=== PATIENT | male | born 1975 | race Caucasian/White ===

== ENCOUNTER → 2023-12-31 | Outpatient (CLI) | payer BC ==
--- NOTE | 2024-01-01 08:45 | MR ---
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 IV Contrast: cc . (None if empty) FINDINGS: Alignment: The lumbar vertebral bodies have preserved heights and alignment. Cord: The conus medullaris and the distal spinal cord appear unremarkable with regards to their signa l intensity and morphology. Bones/Discs: Multilevel disc degeneration changes with osteophyte formation, disc space narrowing, Sc hmorl's nodes, and facet joint arthropathy. Intervertebral disc signal is maintained. No abnormal in version recovery signal to suggest bony edema. T12-L1: No evidence of significant spinal canal stenosis or neural foraminal stenosis. L1-L2: No evidence of significant spinal canal stenosis or neural foraminal stenosis. L2-L3: Disc bulge and facet joint arthropathy result in mild spinal canal and mild bilateral neural f oraminal stenosis. L3-L4: Central disc bulge with left foraminal/central disc extrusion with sequestration of disc mater ial measuring up to 14 x 8 mm series 401 image 7 and series 701 image 11 the neural foramen are paten t. Mild effacement of the anterior thecal sac with extension towards the and possibly abutting the de forming L4-L5 left nerve.. L4-L5: Central protrusion with left central disc extrusion and migration of disc material 7 mm below the joint space series 701 image 6 and series 401 image 8. Disc material closely approximates the for isaias L5-S1 nerve. The neural foramen are patent. No significant spinal canal stenosis. L5-S1: The disc has a rounded posterior morphology without significant spinal canal stenosis. Facet j oint arthropathy with mild to moderate bilateral neural foraminal stenosis. No significant spinal canal or neural foraminal stenosis in the remainder of the visualized levels. Other findings: None. IMPRESSION: 1. L3-L4 left foraminal/central disc extrusion with sequestration of disc material. This material cl osely approximates the forming L4-L5 nerve. 2. L4-L5 left central disc extrusion which closely approximates the forming L5-S1 nerve. 3. Moderate disc degeneration with associated osteoarthritic changes.
== END | disposition home or self-care (01) ==
LOC: RADMRIMAIN 19:02
PROVIDERS: ATTEND Orthopaedic Surgery
DX: M47.816 Spondylosis without myelopathy or radiculopathy, lumbar region (principal); M16.12 Unilateral primary osteoarthritis, left hip; M51.26 Other intervertebral disc displacement, lumbar region; M51.36 Other intervertebral disc degeneration, lumbar region
CPT/HCPCS: 72148

== ENCOUNTER → 2024-05-21 | Outpatient (CLI) | payer BC ==
[2024-05-21 18:29] LABS: BUN/Creat Ratio 18.67 Ratio (12.00-20.00); Blood Urea Nitrogen 16.8 mg/dL (9.0-27.0); Calcium 9.4 mg/dL (8.7-10.3); Carbon Dioxide 28.7 mmol/L (21.6-31.8); Chloride 103 mmol/L (96-109); Glucose 105 mg/dL (70-110); Potassium 4.5 mmol/L (3.5-5.5); Sodium 140 mmol/L (135-145)
== END | disposition home or self-care (01) ==
LOC: LABPAT 15:34
PROVIDERS: ATTEND Orthopaedic Surgery
DX: M16.12 Unilateral primary osteoarthritis, left hip (principal)
CPT/HCPCS: 80048; 86850; 86900; 86901; 87070; 93005

== ENCOUNTER 2024-06-01 05:43 | Day surgery (SDC) | payer BC ==
--- NOTE | 2024-05-31 08:22 | P.HPOR ---
History of Present Illness H&P Date: 05/31/24 Chief Complaint: Left hip pain The patient is a 49-year-old L that presents with progressive left hip pain for the past 2 years. He notes he previously hurt himself playing hockey. He notes groin and thigh pain with any weightbearing activities. He has a difficult time getting out of a chair. He notes stiffness. He's tried medications along with chiropractic treatment without much relief.male tHe notes daily pain that limits his normal function and activities.hat presents with progressive left hip pain for the past 2 years. He notes he previously hurt himself playing hockey. He notes groin and thigh pain with any weightbearing activities. He has a difficult time getting out of a chair. He notes stiffness. He has tried medications along with chiropractic treatment without much relief. He notes daily pain that limits his normal function and activities. Review of Systems Per HPI Past Medical History Past Medical History: Osteoarthritis (OA) Additional Past Medical History / Comment(s): current being tx. for sinus infection-surgeon office aware per pt. History of Any Multi-Drug Resistant Organisms: None Reported Past Surgical History: Hernia Repair Additional Past Surgical History / Comment(s): sinus surg., deviated septum repair Past Anesthesia/Blood Transfusion Reactions: No Reported Reaction Smoking Status: Never smoker - Past Family History Mother Family Medical History: No Reported History Medications and Allergies Home Medications Medication Instructions Recorded Confirmed Type Azithromycin [Zithromax Z Pack] 1 tab PO DIRECTED 05/26/24 05/26/24 History Ibuprofen [Advil] 200 - 400 mg PO Q6HR PRN 05/26/24 05/26/24 History Multivitamins, Thera [Multivitamin 1 tab PO DAILY 05/26/24 05/26/24 History (formulary)] [place]-3/Dha/Epa/Fish Oil [Fish Oil 1 each PO DAILY 05/26/24 05/26/24 History 1,000 mg Softgel] Allergies Allergy/AdvReac Type Severity Reaction Status Date / Time Penicillins Allergy Rash/Hives Verified 05/26/24 10:32 Physical Examination - Hip left Gait: antalgic Tenderness with palpation: anterior Pain with motion: internal rotation and hip flexion ROM: flexion: 70 degrees ROM: internal rotation: 0 degrees (With pain) ROM: external rotation: 50 degrees Crepitus with motion: Yes Strength: extension: 5/5 Strength: flexion: 5/5 Strength: abduction: 5/5 Tests: impingement tests: positive Results Ngozi riley is a well-developed well-nourished male approximately 6 foot 3, 205 pounds of endomorphic habitus. HEENT exam is nonfocal, neck is supple. He has painful passive motion of the left hip. Straight leg raise is negative. His distal neurovascular exam appears intact in left lower extremity. He has shortening clinically of the left lower extremity. He has shortening clinically of the left lower extremity compared the right. His distal neurovascular exam appears intact in the left lower extremity. - Diagnostic results Hip x-ray: image reviewed (X-rays of the left hip obtained in the office show severe osteoarthrosis with [id number] changes and subchondral sclerosis.) Assessment and Plan Assessment: Left hip severe osteoarthrosis Plan: I talked to the patient at length regarding his condition along with treatment options. At this point is quite symptomatic and limited because of pain related to his left hip osteoarthrosis despite conservative measures. After a thorough discussion he opts to proceed with surgery. We will plan to proceed with left total hip arthroplasty utilizing an anterior approach. Risks and benefits were discussed at length in layman's terms. We will institute DVT prophylaxis postoperatively.
[~2024-06-01 05:43] MED LIST: TRANEXAMIC 1,000 MG/100ML-NACL 1,000 MG in SALINE 1 100ML.BAG IVPB PRN
[2024-06-01] MEDS: ACETAMINOPHEN TAB 500 MG TAB PO PRN (06:40)
[2024-06-01] MEDS: MELOXICAM 7.5 MG TAB PO PRN (06:40)
[2024-06-01] MEDS: ONDANSETRON 4 MG/2 ML VIAL IVP ONE (06:41)
[2024-06-01] MEDS: DEXAMETHASONE SOD PHOSPHATE 4 MG/ML 1 ML VIAL IV ONE (06:42)
[2024-06-01] MEDS: SCOPOLAMINE 1 MG/72 HR PATCH TRANSDERM ONE (06:43)
[2024-06-01 06:45] LABS: HCT 44.1 % (39.0-53.0); HGB 14.8 gm/dL (13.0-17.5); MCH 31.9 pg (25.0-35.0); MCHC 33.6 g/dL (31.0-37.0); Mean Platelet Volume 7.1; Platelet Count 253 k/uL (150-450); RBC 4.64 m/uL (4.30-5.90); RDW 12.6 % (11.5-15.5); WBC 6.6 k/uL (3.8-10.6)
[2024-06-01] MEDS: LACTATED RINGERS 1,000 ML IV SCH (06:45)
[2024-06-01] MEDS: IV FLUID CONTINUATION 1,000 ML IV ONE (06:46)
[2024-06-01] MEDS: MIDAZOLAM 2 MG/2 ML VIAL IVP ONE (06:59)
[2024-06-01] MEDS ORDERED: MIDAZOLAM 2 MG/2 ML VIAL IV PRN (07:00)
[2024-06-01] MEDS ORDERED: HYDROmorphone 0.5 MG/0.5 ML SYRINGE IVP PRN ×2 (07:00→10:23)
[2024-06-01 07:15] LABS: INR 0.9 (<1.2); Prothrombin Time 10.4 sec (10.0-12.5)
--- NOTE | 2024-06-01 07:19 | P.ANPRN ---
Procedure Note - Anesthesia - Nerve Block Performed Left Ok Single Time Out Performed: Yes Date of Procedure: 06/01/24 Procedure Start Time: 06:59 Procedure Stop Time: 07:04 Location of Patient: PreOp Indication: Acute Post-Operative Pain, Requested by Surgeon Sedation Type: Sedate with meaningful contact maintained Preparation: Sterile Prep Position: Supine Needle Types: Pajunk Needle Gauge: 21 Ultrasound used to visualize needle placement: Yes Ultrasound used to observe medication spread: Yes Injectate: 0.5% Ropivacaine (see comment for volume) (30 ml + 4 mg Dexamethas one) Blood Aspirated: No Pain Paresthesia on Injection Noted: No Resistance on Injection: Normal Image Stored and Saved: Yes Events: Uneventful and Well Tolerated
[2024-06-01] MEDS ORDERED: ROPIVACAINE 5 MG/ML 30 ML VIAL ONE (07:23)
[2024-06-01] MEDS ORDERED: TRANEXAMIC 1,000 MG/100ML-NACL PREMIX BAG ONE (07:23)
[2024-06-01] MEDS ORDERED: DEXAMETHASONE SOD PHOSPHATE 4 MG/ML 1 ML VIAL ONE (07:23)
[2024-06-01] MEDS ORDERED: MIDAZOLAM 2 MG/2 ML VIAL ONE (07:23)
[2024-06-01] MEDS ORDERED: LIDOCAINE 1% INJ 10MG/ML (20 ML MDV) ONE (07:23)
[2024-06-01] MEDS ORDERED: PROPOFOL 10 MG/ML 20 ML VIAL IV ONE (07:23)
[2024-06-01] MEDS: LACTATED RINGERS 1,000 ML IV ONE (10:10)
[2024-06-01] MEDS ORDERED: HYDROmorphone 1 MG/ML 1 ML SYRINGE IVP PRN (10:23)
[2024-06-01] MEDS ORDERED: MAGNESIUM HYDROXIDE 2,400 MG/30 ML CUP PO PRN (10:23)
[2024-06-01] MEDS ORDERED: NALOXONE 0.4 MG/ML 1 ML VIAL IV PRN (10:23)
[2024-06-01] MEDS ORDERED: hydrOXYzine pamoate 25 MG CAP PO PRN (10:23)
[2024-06-01] MEDS ORDERED: ONDANSETRON 4 MG/2 ML VIAL IVP PRN (10:23)
[2024-06-01] MEDS ORDERED: HYDROcodone/APAP 5-325MG 1 EACH TAB PO PRN (10:23)
--- NOTE | 2024-06-01 10:30 | XR ---
Fluoroscopy INDICATION: Pain FINDINGS: Fluoroscopy time: 1 minute 6.9 seconds. Total dose area product (DAP) in uGy*m?, mGy*cm? (or similar): 3.3489 Images obtained: 2. IMPRESSION: 1. Documentation of fluoroscopy. [facility], , 06/01/2024 10:28 AM
--- NOTE | 2024-06-01 10:40 | P.OP ---
Date of Procedure: 06/01/24 Preoperative Diagnosis: Severe left hip osteoarthrosis Postoperative Diagnosis: Same Procedure(s) Performed: Left total hip arthroplastypress-fitanterior approach Implants: DePuy Corail size 12-125 degreehigh offset collared press-fit femoral stem, 36+5 cobalt chrome femoral head, 60 mm [place] acetabular shell with neutral polyethylene liner. Anesthesia: spinal Surgeon: Tae Aparicio Commercial Loan Coordinator #1: Jose Vicente Estimated Blood Loss (ml): 200 Pathology: none sent Condition: stable Disposition: PACU Indications for Procedure: The patient is a 49-year-old male who presents with progressive left hip pain secondary to osteoarthrosis despite conservative measures. A discussion of the risks and benefits of operative intervention versus continued conservative measures was made with the patient. He opted proceed with surgery. Operative risks include infection, neurovascular injury, development of blood clots, fracture, leg length discrepancy, possible component loosening/failure, possible instability, possible need for subsequent procedures was discussed. Informed consent was obtained. Operative Findings: As below Description of Procedure: The patient was brought to the operating room, and after induction of spinal anesthesia was placed supine on the Marissa table. Positioning was checked with fluoroscopy. The left hip was then prepped and draped in a normal fashion. A 12 cm incision was then made starting 2 fingerbreadths distal and 3 finger breaths posterior to the ASIS in line with the proximal femur. The skin was incised sharply. Subcutaneous tissues were divided sharply. Electrocautery was used for hemostasis. The fascia was split in line with skin incision. The interval between the sartorius and tensor fascia margie was then bluntly develo ped. The posterior fascia was opened with electrocautery. The lateral circumflex vessels were identified and cauterized prior to sectioning. A retractor was placed along the superior femoral neck as well as the anterior acetabular rim. A wide capsulotomy was performed. The neck cut was then made at a 45 angle to the shaft approximately 1 1/2 cm above the level of the lesser trochanter. The head was extracted. Attention was then paid towards preparing the acetabulum. Anterior and posterior retractors were placed. The remaining capsular labral tissue sharply debrided clearly defining the acetabular margins. I began reaming with a 53 mm reamer taking care to initially medialize then reaming at 45 of abduction and 20 of anteversion. Sequential reaming is performed up to 59 mm. A trial 60 mm acetabular shell was inserted in the same orientation and was fully seated. There was good rim fit and stability. Positioning was checked with fluoroscopy. The final 60 mm acetabular shell was inserted again at 45 of abduction and 20 of anteversion. This was fully seated. There was good rim fit and stability. Again fluoroscopy was used to check the adequacy of placement. A neutral polyethylene liner was gently impacted. Care was taken to avoid any soft tissue interposition. Pulsatile lavage was utilized. Attention was then paid towards preparing the proximal femur. The central region was cleared of soft tissue. A canal finder was used to find the femoral canal. Sequential broaching was performed up to size 12 taking care to lateralize proximally. A calcar mill was used to fashion the medial calcar. There was good rotational stability. A 125 degree high offset neck along with a 36 mm +5 head was placed. The hip was gently reduced. Fluoroscopy was used to check the adequacy of positioning along with leg lengths. I felt both were good. The hip was gently dislocated. The trial components were removed. The final size 12-125 degreehigh offset co llared standard press-fit femoral stem was inserted parallel to the posterior cortex. This was fully seated and there was good rotational stability. A 36 mm +5 cobalt chrome femoral head was placed. This was gently impacted. The hip was then gently reduced. Final fluoroscopic view showed adequate placement implant along with protestant of leg length. Stability was checked with 80 of external rotation and 60 of extension of the right hip. The wound was irrigated with sterile lavage. The fascia was closed with running 0 Vicryl suture. There was minimal drainage therefore a deep drain was not placed. The second dose of IV TXA was given. The subcutaneous tissues were reapproximated interrupted 2-0 Vicryl sutures. The skin was reapproximated with 3-0 subcuticular strata fix suture. Skin tape and adhesive was applied. A sterile dressing was applied. The patient was then awoken from sedation and transferred to recovery room in good condition. Blood loss was estimated at 200 mL. No complications were incurred. Sponge and needle counts were correct at the end of the case. Jose MICHAUD assisted during the major components is case to include exposure, bone resection, implantation, and closure.
--- NOTE | 2024-06-01 10:50 | FL ---
EXAMINATION TYPE: FL guidance operating room, XR Hip Limited LT DATE OF EXAM: 06/01/2024 10:21 AM COMPARISON: Pre Operative Images if available both CT/MRI or plain film CLINICAL INDICATION: Male, 49 years old with history of LEFT ANTERIOR HIP; TECHNIQUE: FL guidance operating room, XR Hip Limited LT, multiple fluoroscopic images provided for p rocedure. Total fluoroscopy time: 1.06 minutes Total submitted images to PACS: 1 DAP: 3.3489 mGym2 Gycm2 uGym2 cGycm2 or equivalent. FINDINGS: Fluoroscopic images during internal fixation/arthroplasty demonstrate hardware in appropriate positio n. Hardware appears intact. No immediate complication identified. IMPRESSION: 1. No evidence for intraoperative complication. 2. Please see the operative/procedural note for further details. [facility], , 06/01/2024 10:32 AM
--- NOTE | 2024-06-01 16:35 | P.CONS ---
History of Present Illness - Reason for Consult Consult date: 06/01/24 - History of Present Illness 49 year old M with no significant PMH presents to the [facility] for elective surgery. He underwent Left total hip arthroplastypress-fitanterior approach with Dr. Aparicio. [facility] [place] Physicians consulted for medical management of this patient. 06/01 Patient was seen and examined. Reports numbness in the left knee to the left hip. No other complaints. CBC and Coag panel unremarkable. General: non toxic, no distress, appears at stated age Derm: warm, dry Head: atraumatic, normocephalic, symmetric Eyes: EOMI, no lid lag, anicteric sclera Mouth: no lip lesion, mucus membranes moist Cardiovascular: S1S2 denis, no murmur Lungs: CTA bilateral, no rhonchi, no rales , no accessory muscle use Ext: no gross muscle atrophy, no edema, no contractures Neuro: no focal neuro deficits Psych: Alert, oriented, appropriate affect Based on my assessment of this patient, this patient meets a high complexity level of care. Sinus bradycardia: Asymptomatic. Discontinue Scopolamine patch. Obtain EKG. Telemetry monitoring. Check Mag and K. Left hip osteoarthritis status post left total hip arthroplasty POD 0: Management per Orthopedic surgery. CODE STATUS: FULL CODE DVT Prophylaxis: Xarelto GI Prophylaxis: Designated medical POA if patient is not able to make medical decisions for themselves: I have reviewed the following universal branch consultant notes: Ortho note. I have reviewed the results of the following tests: CBC I have ordered the following tests: CBC, BMP, Mag. I have discussed the care of this patient with the following independent historian: FRACISCO. I have independently interpreted the following test below: I have discussed the management of this patient with the following physician: Past Medical History Past Medical History: Osteoarthritis (OA) Additional Past Medical History / Comment(s): current being tx. for sinus infection-surgeon office aware per pt. History of Any Multi-Drug Resistant Organisms: None Reported Past Surgical History: Hernia Repair Additional Past Surgical History / Comment(s): sinus surg., deviated septum repair Past Anesthesia/Blood Transfusion Reactions: No Reported Reaction Past Psychological History: No Psychological Hx Reported Smoking Status: Never smoker Past Alcohol Use History: Occasional Past Drug Use History: None Reported - Past Family History Mother Family Medical History: No Reported History Medications and Allergies Home Medications Medication Instructions Recorded Confirmed Type Azithromycin [Zithromax Z Pack] 1 tab PO DIRECTED 05/26/24 05/26/24 History Ibuprofen [Advil] 200 - 400 mg PO Q6HR PRN 05/26/24 05/26/24 History Multivitamins, Thera [Multivitamin 1 tab PO DAILY 05/26/24 05/26/24 History (formulary)] [place]-3/Dha/Epa/Fish Oil [Fish Oil 1 each PO DAILY 05/26/24 05/26/24 History 1,000 mg Softgel] Allergies Allergy/AdvReac Type Severity Reaction Status Date / Time Penicillins Allergy Rash/Hives Verified 06/01/24 06:12 Physical Exam Vitals: Vital Signs Temp Pulse Resp BP BP Pulse Ox 06/01/24 14:04 97.4 F L 56 L 18 123/66 99 06/01/24 12:57 51 L 14 111/63 100 06/01/24 12:28 75 14 112/64 99 06/01/24 11:58 48 L 14 121/69 99 06/01/24 11:28 42 L 14 100 06/01/24 11:13 52 L 14 123/67 100 06/01/24 10:58 56 L 14 121/75 100 06/01/24 10:43 54 L 14 119/73 100 06/01/24 10:28 96.7 F L 62 14 122/75 98 06/01/24 07:14 61 16 141/84 100 06/01/24 06:20 96.9 F L 61 16 143/77 100 Intake and Output 06/01/24 06/01/24 06/01/24 06:59 14:59 22:59 Intake Total 400 850 300 Output Total 200 Balance 400 650 300 Intake: IV 400 850 Oral 300 Output: Estimated Blood Loss 200 Other: # Voids 1 Weight 93 kg 93 kg Results CBC & Chem 7: 06/01/24 06:20
[2024-06-01 16:44] LABS: Glucose,Whole Blood 144 mg/dL (70-110)
[2024-06-01] MEDS: HYDROcodone/APAP 7.5-325MG 1 EACH TAB PO PRN (18:47)
[2024-06-01] MEDS: SENNOSIDES-DOCUSATE SODIUM 1 EACH TAB PO SCH (21:38)
[2024-06-02 05:49] LABS: African American GFR (CKD) >90 (>60 ml/min/1.73 sqM); Anion Gap 3 mmol/L; Blood Urea Nitrogen 18 mg/dL (9-20); Calcium 8.2 mg/dL (8.4-10.2); Carbon Dioxide 28 mmol/L (22-30); Chloride 105 mmol/L (98-107); Glucose 112 mg/dL (74-99); Magnesium 2.1 mg/dL (1.6-2.3); Non-African American GFR(CKD) >90 (>60 ml/min/1.73 sqM); Potassium 4.3 mmol/L (3.5-5.1); Sodium 136 mmol/L (137-145)
[2024-06-02 08:08] VITALS: BP 114/62; PULSE 83; RESP 18; TEMP 98.4
[2024-06-02] MEDS: RIVAROXABAN 10 MG TAB PO SCH (08:15)
[2024-06-02 09:03] LABS: Basophils # (A) 0.02 X 10*3/uL (0.00-0.10); Basophils % (A) 0.2 %; Eosinophils # (A) 0.02 X 10*3/uL (0.04-0.35); Eosinophils % (A) 0.2 %; HGB 11.1 g/dL (13.0-17.0); Lymphocytes % (A) 11.3 %; MCH 31.4 pg (27.0-32.0); MCHC 33.6 g/dL (32.0-37.0); MCV 93.5 FL (80.0-97.0); Mean Platelet Volume 9.8 FL (9.5-12.2); Monocytes # (A) 1.42 X 10*3/uL (0.20-1.00); Monocytes % (A) 11.4 %; NRBC Per 100 WBC 0 X 10*3/uL (0.00-0.01); Neutrophils % (A) 76.4 %; Platelet Count 228 X 10*3/uL (140-440); RBC 3.53 X 10*6/uL (4.40-5.60); WBC 12.42 X 10*3/uL (4.50-10.00)
--- NOTE | 2024-06-02 10:00 | P.PN ---
Subjective Progress Note Date: 06/02/24 Principal diagnosis: Status post direct anterior left total hip arthroplasty Patient evaluated today at bedside, he is resting comfortably in his hospital chair. Patient's been ambulating well, he did well with therapy. His pain is well-controlled. He denies headaches, lightheadedness, chest pain or shortness of breath Objective - Vital Signs Vital signs: Vital Signs Temp 98.4 F 06/02/24 07:23 Pulse 83 06/02/24 07:23 Resp 18 06/02/24 07:23 BP 114/62 06/02/24 07:23 Pulse Ox 99 06/02/24 07:23 FiO2 Intake & Output 06/01/24 06/02/24 06/02/24 18:59 06:59 18:59 Intake Total 1150 Output Total 200 Balance 950 Weight 93 kg Intake: IV 850 Oral 300 Output: Estimated Blood Loss 200 Other: Voiding Method Toilet # Voids 1 2 - Exam Left lower extremity: Incision is clean, dry, and intact. The exofin fusion tape is in good condition. There is minimal soft tissue swelling and ecchymosis surrounding the medial and lateral aspects of the incision. Calf is soft, no tenderness with palpation. Plantar flexion, dorsiflexion, EHL, FHL are intact. Sensory exam to light touch throughout the extremity is intact, dorsal pedis pulses 2+. - Labs CBC & Chem 7: 06/02/24 04:02 06/02/24 04:02 Labs: Abnormal Lab Results - Last 24 Hours (Table) 06/01/24 06/02/24 06/02/24 Range/Units 16:43 04:02 04:02 WBC 12.42 H (4.50-10.00) X 10*3/uL RBC 3.53 L (4.40-5.60) X 10*6/uL Hgb 11.1 L (13.0-17.0) g/dL Hct 33.0 L (39.6-50.0) % Immature Gran # 0.06 H (0.00-0.04) X 10*3/uL Neutrophils # 9.50 H (1.80-7.70) X 10*3/uL Monocytes # 1.42 H (0.20-1.00) X 10*3/uL Eosinophils # 0.02 L (0.04-0.35) X 10*3/uL Sodium 136 L (137-145) mmol/L Glucose 112 H (74-99) mg/dL POC Glucose (mg/dL) 144 H (70-110) mg/dL Calcium 8.2 L (8.4-10.2) mg/dL Assessment and Plan Assessment: Postoperative day #1 status post direct anterior left total hip arthroplasty Plan: Pain control, plan for discharge home on oral medications. Will also utilize stool softeners DVT prophylaxis, Eliquis 2.5 mg twice a day for 28 days Wound care instructions discussed, this to include bandage changing and showering Home PT/nursing after discharge Medical recommendations appreciated Discharge planning: Patient is stable for discharge home today Time with Patient: Less than 30
--- NOTE | 2024-06-02 10:04 | P.DS ---
Providers Date of admission: 06/01/2024 Expected date of discharge: 06/02/24 Attending physician: Tae Aparicio Consults: 06/01/24 10:23 Consult Physician Routine Consulting Provider: Medina Pimentel Consult Reason/Comments: medical management s/p left hip replacement Do you want consulting provider notified?: Yes Primary care physician: Stated None Hospital Course: Date of admission: 06/01/2024 Date of discharge: 06/02/2024 Admission diagnosis: Status post direct anterior left total hip arthroplasty Discharge diagnosis: Same Attending physician: Dr. Aparicio Surgical procedures: Direct anterior left total hip arthroplasty Brief history: Patient is a 49-year-old male with a history of progressive primary left hip osteoarthritis. At this point patient has failed conservative treatment measures and has opted to proceed with a elective direct anterior left total hip arthroplasty. Hospital course: Details of patient's surgery can be found in operative report. Patient tolerated the procedure well and was subsequently transported to orthopedic floor. Patient's orthopeidc and medical care was provided daily. Patient had daily laboratory tests performed for evaluation of overall blood counts. Patient had daily physical therapy to include strengthening range of motion as well as education with walker ambulation. Patient was treated with Xarelto for their postoperative DVT prophylaxis during their inpatient stay. Patient was noted to have a relatively uneventful postoperative course. Patient reported satisfactory pain control with oral pain medications by postoperative day 0. Patient showed satisfactory progress with physical therapy. Patient moved steadily through the program and had no difficulty meeting the goals by postoperative day 1. Given patient's otherwise satisfactory course and having met physical therapy goals, plan is to discharge patient home on postoperative day 1. Discharge condition/disposition: Patient will be discharged home in stable condition. Discharge medications: Instructions are given on resumption of patient's normal daily medications per primary care recommendation, in addition patient will be prescribed [place] 7.5 mg / 325 mg, senna S, Eliquis 5 mg. Discharge instructions: 1. Wound care and infection precautions, keep incision dry and covered while showering, no lotions, creams, moisturizers. No soaking, tubs, pools, hottubs. Do not scrub over the incision. 2. Weight-bear as tolerated with walker / cane until follow-up. 3. Ice and elevate when necessary. Do not exceed 20 minutes per hour with ice pack. 4. Utilize compression sleeve until seen at first follow up appointment. 5. Visiting nursing care. 6. Home physical therapy. 7. Pain meds and anticoagulants per prescription. 8. Pain medication has potential to cause constipation. Increase oral fluid and fiber intake. Contact primary care provider if you have not had a bowel movement within 48 hours after discharge 9. No anti-inflammatory medication until discussed at first post operative visit, this including Motrin, Aleve, Mobic, Diclofenac. 10. Follow up in office at 2 weeks postop with Gerard Andrews PA-C/Jose Catherine 11. Follow up with your primary care doctor 7-10 days after discharge. 12. Contact [facility] with any questions, . Procedures: Direct anterior left total hip arthroplasty Patient Condition at Discharge: Good Plan - Discharge Summary Discharge Rx Participant: Yes New Discharge Prescriptions: New Sennosides/Docusate Sodium [Senna-S 8.6-50 mg Tablet] 2 each PO DAILY PRN #30 tablet PRN Reason: Constipation Apixaban [Eliquis] 5 mg PO DAILY #28 tablet HYDROcodone/APAP 7.5-325MG [[place] 7.5] 1 each PO Q6HR PRN #28 tab PRN Reason: Pain No Action Azithromycin [Zithromax Z Pack] 1 tab PO DIRECTED [place]-3/Dha/Epa/Fish Oil [Fish Oil 1,000 mg Softgel] 1 each PO DAILY Ibuprofen [Advil] 200 - 400 mg PO Q6HR PRN PRN Reason: Pain Multivitamins, Thera [Multivitamin (formulary)] 1 tab PO DAILY Discharge Medication List Azithromycin [Zithromax Z Pack] 1 tab PO DIRECTED 05/26/24 [History] Ibuprofen [Advil] 200 - 400 mg PO Q6HR PRN 05/26/24 [History] Multivitamins, Thera [Multivitamin (formulary)] 1 tab PO DAILY 05/26/24 [History] [place]-3/Dha/Epa/Fish Oil [Fish Oil 1,000 mg Softgel] 1 each PO DAILY 05/26/24 [History] Apixaban [Eliquis] 5 mg PO DAILY #28 tablet 06/02/24 [Rx] HYDROcodone/APAP 7.5-325MG [[place] 7.5] 1 each PO Q6HR PRN #28 tab 06/02/24 [Rx] Sennosides/Docusate Sodium [Senna-S 8.6-50 mg Tablet] 2 each PO DAILY PRN #30 tablet 06/02/24 [Rx] Follow up Appointment(s)/Referral(s): Jose Vicente, RENA [PHYSICIAN SUSTAINABLE DESIGN COORDINATOR] - 06/17/24 9:20 am Patient Instructions/Handouts: Anterior Hip Replacement (GEN) Activity/Diet/Wound Care/Special Instructions: Orthopedic Discharge Instructions: 1. Wound care and infection precautions, keep incision dry and covered while showering, no lotions, creams, moisturizers. No soaking, pools, hot tubs. Do not scrub over incision. 2. Weight-bear as tolerated with walker / cane until follow-up. 3. Ice and elevate when necessary. Do not exceed 20 minutes per hour with ice pack. 4. Utilize compression sleeve until seen at first follow up appointment. 5. Pain meds and anticoagulants per prescription. 6. Pain medication has potential to cause constipation. Increase oral fluid and fiber intake. Contact primary care provider if you have not had a bowel movement within 48 hours after discharge. 7. No anti-inflammatory medication until discussed at first post operative visit, this including Motrin, Aleve, Mobic, Diclofenac. 8. Follow up in office at 2 weeks postop with Gerard Andrews PA-C / Jose Vicente PA-C 9. Follow up with your primary care doctor 7-10 days after discharge. 10. Contact [facility] with any questions, . Keep incision clean, dry, intact. While showering, cover fusion tape with Saran wrap. Keep fusion tape on until follow-up appointment office in 2 weeks. Discharge Disposition: HOME WITH HOME HEALTH SERVICES
--- NOTE | 2024-06-02 11:22 | P.PN ---
Subjective Progress Note Date: 06/02/24 49 year old M with no significant PMH presents to the [facility] for elective surgery. He underwent left total hip arthroplastypress-fitanterior approach with Dr. Aparicio. [facility] consulted for medical management of this patient. 06/02. Patient seen and examined at bedside. No significant events overnight. He is postop day 1 of left total hip arthroplasty. He has no complaints today. BMP today: Sodium 136, potassium 4.3, chloride 105, CO2 28, BUN 18, creatinine 0.9, glucose 112, calcium 8.2, magnesium 2.1. Pertinent positives and negatives discussed above, a complete review of systems was performed and all the other systems were negative. Physical examination: Vital signs reviewed General: Nontoxic, no distress, appears stated age, well-appearing Derm: Warm, dry, intact Head: Atraumatic, normocephalic, symmetric Eyes: EOMI, anicteric sclera Mouth: No lip lesion, mucus membranes moist Cardiovascular: S1-S2 regular, no murmur Lungs: CTA bilateral, no rhonchi, no rales, no accessory muscle use Abdominal: Soft, non-tender to palpation Extremities: No cyanosis, clubbing, or pedal edema. Neuro: Alert, oriented x 3, gross neurological examination did not reveal any focal deficits. Cranial nerves II to XII grossly intact. Psych: Appropriate affect and mood Assessment and Plan: 49 year old M with no significant PMH underwent left total hip arthroplasty with Dr. Aparicio. Active #. Left hip osteoarthritis status post left total hip arthroplasty, postop day 1 Management per orthopedic surgery #. Leukocytosis with left shift, reactive, anticipated outcome of surgery Monitor #. Acute blood loss anemia, anticipated outcome of surgery Monitor Resolved #. Sinus bradycardia F: No restrictions E: Replete if necessary N: Heart healthy diet A: Weightbearing as tolerated with use of walker DVT prophylaxis: Mechanical Code status: Full code Anticipated discharge place: Home Medically optimized for discharge. Thank you for allowing us to participate in the care of this pleasant patient. Do not hesitate to contact us with questions. Someone can be reached from the [facility] hospitalist group all hours of the day at [phone] or via perfect serve. I have seen and evaluated the patient today. Discussed with the resident and agree with the residents finding and plan as documented in the resident's note. Changes highlighted in blue font. Objective - Vital Signs Vital signs: Vital Signs Temp 98.5 F 06/02/24 01:39 Pulse 69 06/02/24 01:39 Resp 16 06/02/24 01:39 BP 105/61 06/02/24 01:39 Pulse Ox 98 06/02/24 01:39 FiO2 Intake & Output 06/01/24 06/02/24 06/02/24 18:59 06:59 18:59 Intake Total 1150 Output Total 200 Balance 950 Weight 93 kg Intake: IV 850 Oral 300 Output: Estimated Blood Loss 200 Other: Voiding Method Toilet # Voids 1 2 - Labs CBC & Chem 7: 06/02/24 04:02 06/02/24 04:02 Labs: Abnormal Lab Results - Last 24 Hours (Table) 06/01/24 06/02/24 Range/Units 16:43 04:02 Sodium 136 L (137-145) mmol/L Glucose 112 H (74-99) mg/dL POC Glucose (mg/dL) 144 H (70-110) mg/dL Calcium 8.2 L (8.4-10.2) mg/dL
== END 2024-06-02 12:15 | disposition home health service (06) ==
LOC: OR 05:43 → 4SSUR 10:32 → OR 06-02 12:15
PROVIDERS: ATTEND Orthopaedic Surgery
DX: M16.12 Unilateral primary osteoarthritis, left hip (principal); G89.18 Other acute postprocedural pain; D62 Acute posthemorrhagic anemia; R00.1 Bradycardia, unspecified; D72.829 Elevated white blood cell count, unspecified; Z88.0 Allergy status to penicillin
CPT/HCPCS: 27130; 97161; 97166; 64999; 80048; 83735; 85025; 85027; 85610; 73501; C1776; J2250; J1100; J0690; J2405